=== PATIENT | male | born 1995 | race Caucasian/White ===

== ENCOUNTER 2017-03-21 16:57 | Emergency (ER) | payer OTHER ==
[~2017-03-21] VITALS: Ht 175.3 cm; Wt 79.4 kg
[~2017-03-21 16:57] MED LIST: AMOXICILLIN875 MG PO; BACLOFEN10 MG PO; GABAPENTIN300 MG PO; HYDROCODON-ACE1 EAC7 PO; KEFLEX500 MG PO; LO-DOSE ASPIRIN81 M2 PO; OXYCODONE HCL15 MG PO; PYRIDIUM200 MG PO; STOOL SOFTENER100 MG PO; TYLENOL EXTRA500 MG PO; ZOFRAN4 MG PO
[2017-03-21] MEDS ORDERED: GABAPENTIN100 MG PO (18:39)
[2017-03-21] MEDS ORDERED: NAPROSYN500 MG PO (18:39)
[2017-03-21 19:25] VITALS: BP 112/72
== END 2017-03-21 19:27 | disposition home or self-care (01) ==
LOC: EME 16:57
DX: S92.002S Unspecified fracture of left calcaneus, sequela (principal); G57.82 Other specified mononeuropathies of left lower limb; F17.200 Nicotine dependence, unspecified, uncomplicated; Z91.81 History of falling
CPT/HCPCS: 73610; 73630; 99281; 99284